=== PATIENT | female | born 1980 | race Caucasian/White ===

== ENCOUNTER 2020-03-23 10:28 | Outpatient (CLI) | payer BC, SELFPAY ==
--- NOTE | 2020-03-23 10:45 | US_ITS ---
WS: [id number] ULTRASOUND PELVIS TECHNIQUE: Transabdominal and transvaginal. ULTRASOUND PELVIS TECHNIQUE: Transabdominal. CLINICAL INFORMATION: PELVIC PAIN CHRONIC LMP: : No. COMPARISON: None. FINDINGS: Uterus Orientation: Anteverted. Size: 10.4 cm x 6.8 cm x 5.3 cm. Masses: None. Cervix: Incidental nabothian cysts. Endometrium: Normal. Endometrium thickness: 0.9 cm. Adnexa: Right ovarian cyst measuring 1.9 x 1.5 cm Right ovary size: 4.4 cm x 2.8 cm x 2.5 cm. Right ovary volume: 16.3 ccm3. Left ovary size: 4.8 cm x 2.5 cm x 1.8 cm. Left ovary volume: 11.7 ccm3 Free fluid: None. Other findings: None. US/US pelvic with transvaginal IMPRESSION: 1. Normal uterus with endometrium measuring 8.6 mm. 2. Right ovarian cyst measuring 1.9 x 1.5 cm 3. Ovaries are otherwise normal in appearance 4. No free fluid in the cul-de-sac.
== END 2020-03-23 10:29 | disposition home or self-care (01) ==
LOC: RAD 10:31
PROVIDERS: PCP Family Medicine; Visit Provider Family Medicine
DX: R10.2 Pelvic and perineal pain (principal); N83.291 Other ovarian cyst, right side
CPT/HCPCS: 76830; 76856

== ENCOUNTER → 2020-04-15 13:59 | Outpatient (BNVA) | payer BC, SELFPAY | PROVIDERS: PCP Family Medicine; Referring Provider Family Medicine; Visit Provider Podiatrist Foot & Ankle Surgery | DX: S91.301A Unspecified open wound, right foot, initial encounter (principal); X58.XXXA Exposure to other specified factors, initial encounter | CPT/HCPCS: 73630 ==

== ENCOUNTER 2020-08-22 09:15 | Outpatient (CLI) | payer OTHER, SELFPAY ==
--- NOTE | 2020-08-22 09:23 | MR_ITS ---
WS: [id number] [facility] MRI RIGHT KNEE HISTORY: Fell 2 weeks ago. RIGHT knee pain. Medial pain. COMPARISON: None available. Anterior cruciate ligament: Slight increased amount of fluid adjacent to the ACL and the intercondyla r notch. No ACL tear. There is a very small amount of increased T2 signal in the distal ACL. Posterior cruciate ligament: Intact. Medial collateral ligament: Intact. Posterior lateral corner structures: Intact. Medial menisci: Intact. Normal signal, size and shape. Lateral meniscus: Intact. Normal signal, size and shape. Extensor mechanism: Distal quadriceps tendon and patellar tendons are intact. Fluid and soft tissue: No joint effusion. No Franz's cyst. Osseous and articular structures: Patellofemoral compartment: Normal. Medial compartment: Negative. No joint space narrowing. No cartilage abnormality. Lateral compartment: Very minimal fissuring of the cartilage in the weightbearing surface. No full-th ickness defect or osteochondral lesions. There is a very small amount of marrow edema in the superficial anterior lateral femoral condyle, non weightbearing surface. MR/MR knee RT wo con* [id number] IMPRESSION: 1. No meniscal tear. 2. Very small amount of subchondral edema along the nonweightbearing surface o f the anterior lateral femoral condyle. No fracture. 3. Small amount of fluid in the intercondylar notch. No ACL tear.
== END 2020-08-22 09:16 | disposition home or self-care (01) ==
PROVIDERS: PCP Family Medicine; Visit Provider Nurse Practitioner Family
DX: M25.561 Pain in right knee (principal)
CPT/HCPCS: 73721

== ENCOUNTER 2022-03-07 14:03 | Outpatient (CLI) | payer OTHER, SELFPAY ==
--- NOTE | 2022-03-07 14:30 | US_ITS ---
WS: [id number] ULTRASOUND PELVIS TECHNIQUE: Transabdominal and transvaginal. CLINICAL INFORMATION: pelvic pain / hx of cysts. : No. COMPARISON: 2020 FINDINGS: Uterus Orientation: Anteverted. Size: 10.5 cm x 5.5 cm x 5.1 cm. Masses: None. Cervix: Clustered small nabothian cysts in the cervix. Endometrium: Normal. Endometrium thickness: 8mm. Adnexa: RIGHT ovary not visualized. Simple LEFT ovarian cyst measuring 2.6 x 2.3 x 2.8 cm Left ovary size: 3.8 cm x 3.2 cm x 2.6 cm. Left ovary volume: 16.7 ccm3 Free fluid: None. US/US pelv w/transvag [id number] IMPRESSION: 1. Clustered small nabothian cysts in the cervix similar in appearance to 202 2. RIGHT ovary not visualized. 3. Simple LEFT ovarian cyst measuring 2.6 x 2.3 x 2.8 cm 4. No free fluid in the cul-de-sac.
== END 2022-03-07 14:04 | disposition home or self-care (01) ==
LOC: RAD 14:04
PROVIDERS: PCP Family Medicine; Visit Provider Family Medicine
DX: R10.2 Pelvic and perineal pain (principal); N88.8 Other specified noninflammatory disorders of cervix uteri; N83.292 Other ovarian cyst, left side
CPT/HCPCS: 76830; 76856

== ENCOUNTER → 2022-05-08 13:00 | Outpatient (BNVA) | payer OTHER, SELFPAY | PROVIDERS: PCP Family Medicine; Visit Provider Nurse Practitioner Women's Health | DX: N93.9 Abnormal uterine and vaginal bleeding, unspecified (principal); Z01.419 Encounter for gynecological examination (general) (routine) without abnormal findings; Z12.4 Encounter for screening for malignant neoplasm of cervix | CPT/HCPCS: 84443; 85025; 87624 ==

== ENCOUNTER 2022-05-22 10:13 | Outpatient (CLI) | payer OTHER, SELFPAY ==
--- NOTE | 2022-05-22 10:24 | MM_ITS ---
WS: [id number] BILATERAL 3D TOMOSYNTHESIS DIGITAL SCREENING MAMMOGRAPHY WITH CAD CLINICAL INFORMATION: Z12.39 - Encounter for other screening for malignant neop... HISTORY: Screening mammogram. No current complaints. COMPARISON: 2014 TECHNIQUE: Bilateral CC and MLO views. FINDINGS: The breasts are composed of heterogeneous fibroglandular density tissue, which can limit the detectio n of small underlying mass lesions. No suspicious mass, asymmetry, calcifications, or architectural d istortion. No evidence of malignancy. A few incidental punctate and lucent centered calcifications. MM/[place] [id number] IMPRESSION: BI-RADS: 2-Benign FOLLOW UP: 1 Year Follow-up Recommend return to annual screening mammography.
== END 2022-05-22 10:14 | disposition home or self-care (01) ==
LOC: RAD 10:15
PROVIDERS: PCP Family Medicine; Visit Provider Nurse Practitioner Women's Health
DX: Z12.31 Encounter for screening mammogram for malignant neoplasm of breast (principal)
CPT/HCPCS: 77063; 77067

== ENCOUNTER → 2022-06-14 14:05 | Outpatient (BNVA) | payer OTHER, SELFPAY | PROVIDERS: PCP Family Medicine; Visit Provider Nurse Practitioner Women's Health | DX: N93.9 Abnormal uterine and vaginal bleeding, unspecified (principal) | CPT/HCPCS: 88305 ==

== ENCOUNTER → 2023-04-21 12:10 | Outpatient (BNVA) | payer OTHER, SELFPAY | PROVIDERS: PCP Family Medicine; Visit Provider Emergency Medicine | DX: J06.9 Acute upper respiratory infection, unspecified (principal) | CPT/HCPCS: 87400 ==

== ENCOUNTER 2024-10-27 13:15 | Outpatient (CLI) | payer OTHER, SELFPAY ==
--- NOTE | 2024-10-27 13:19 | MM_ITS ---
WS: [id number] BILATERAL 3D TOMOSYNTHESIS DIGITAL SCREENING MAMMOGRAPHY WITH CAD CLINICAL INFORMATION: SCREENING HISTORY: Screening mammogram. No current complaints. COMPARISON: 2022 TECHNIQUE: Bilateral CC and MLO views. FINDINGS: The breasts are composed of heterogeneous fibroglandular density tissue, which can limit the detection of small underlying mass lesions. No suspicious mass, asymmetry, calcifications, or architectural distortion. No evidence of malignancy. Incidental punctate and lucent centered calcifications. MM/MM [facility] tomosynthesis [id number] IMPRESSION: DENSITY: The breasts are heterogeneously dense, which may obscure small masses. BI-RADS: 2 - Benign FOLLOW UP: 1 Year Follow-up Recommend return to annual screening mammography.
== END 2024-10-27 13:16 | disposition home or self-care (01) ==
LOC: RAD 13:16
PROVIDERS: PCP Family Medicine; Visit Provider Family Medicine
DX: Z12.31 Encounter for screening mammogram for malignant neoplasm of breast (principal); R92.333 Mammographic heterogeneous density, bilateral breasts; R92.323 Mammographic fibroglandular density, bilateral breasts; R92.1 Mammographic calcification found on diagnostic imaging of breast
CPT/HCPCS: 77063; 77067